=== PATIENT | male | born 1985 | race Caucasian/White ===

== ENCOUNTER 2016-03-18 21:02 | Emergency (ER) | payer OTHER ==
[~2016-03-18] VITALS: Ht 188 cm; Wt 122.5 kg
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
[2016-03-18] MEDS ORDERED: CYCLOBENZAPRINE10 M1 PO (22:28)
[2016-03-18] MEDS ORDERED: IBUPROFEN600 M1 PO (22:28)
[2016-03-18 22:30] VITALS: BP 136/88
== END 2016-03-18 22:36 ==
LOC: ERH 21:02
DX: S16.1XXA Strain of muscle, fascia and tendon at neck level, initial encounter (principal); V49.40XA Driver injured in collision with unspecified motor vehicles in traffic accident, initial encounter
CPT/HCPCS: 72050